=== PATIENT | male | born 1980 | race Caucasian/White ===

== ENCOUNTER 2018-01-10 10:30 | Emergency (ER) | payer SELFPAY ==
[2018-01-10] MEDS: TRIMETHOPRIM/SULFAMETHOX (DS) TAB PO (11:30)
[2018-01-10] MEDS: ONDANSETRON (ODT) 4 MG TAB ODT (11:30)
[2018-01-10] MEDS: CEPHALEXIN 500 MG CAP PO (11:30)
[2018-01-10] MEDS: HYDROCODONE/APAP (10/325) TAB PO (11:30)
[2018-01-10] MEDS: DIPHTH/TET/ACEL PERTUSS (ADULT) 0.5 ML VIAL IM* (11:31)
== END 2018-01-10 13:25 | disposition home or self-care (01) ==
LOC: E/R 10:30
DX: S62.524B Nondisplaced fracture of distal phalanx of right thumb, initial encounter for open fracture (principal); S61.111A Laceration without foreign body of right thumb with damage to nail, initial encounter; W23.0XXA Caught, crushed, jammed, or pinched between moving objects, initial encounter; Y92.9 Unspecified place or not applicable; Z23 Encounter for immunization
CPT/HCPCS: 29125; 73130-RT; 90471; 90715; 99284-25